=== PATIENT | male | born 1980 | race American Indian/Alaskan Native ===

== ENCOUNTER 2020-07-25 10:17 | Day surgery (SDC) | payer OTHER ==
[~2020-07-25 10:17] MED LIST: LACTATED RINGERS 1,000 ML IV SCH; MIDAZOLAM 2 MG/2 ML INJ IV NR
[2020-07-25] MEDS ORDERED: HYDROcodone/ACETAMINOPHEN 5-325 MG TAB PO PRN ×2 (11:19→13:55)
[2020-07-25] MEDS ORDERED: KETOROLAC 30 MG/1 ML INJ IV PRN (11:19)
[2020-07-25] MEDS ORDERED: ONDANSETRON 4 MG/2 ML INJ IV PRN (11:19)
--- NOTE | 2020-07-25 11:19 | Anesthesia Consultation ---
Anesthesia Consult and Med Hx Date of service: 07/25/20 - Airway Anesthetic Teeth Evaluation: Good ROM Head & Neck: Adequate Mental/Hyoid Distance: Adequate Mallampati Class: Class II Intubation Access Assessment: Probably Good - Pulmonary Exam CTA: Yes - Cardiac Exam Cardiac Exam: RRR - Pre-Operative Health Status ASA Pre-Surgery Classification: ASA2 Proposed Anesthetic Plan: MAC - Pulmonary Hx Smoking: Yes Hx Respiratory Symptoms: No - Cardiovascular System Hx Hypertension: No - Central Nervous System CVA: No - Endocrine Hx Renal Disease: No Hx Liver Disease: No Hx Insulin Dependent Diabetes: No Hx Non-Insulin Dependent Diabetes: No Hx Thyroid Disease: No - Other Systems Hx Obesity: No - Additional Comments Anesthesia Medical History Comments: No hx anesthetic complications.
--- NOTE | 2020-07-25 11:19 | Anesthesia Day of Surgery ---
Anesthesia Day of Surgery - Day of Surgery Patient Examined: Yes Patient H&P Reviewed: Yes Patient is NPO: Yes
[2020-07-25] MEDS ORDERED: ceFAZolin/Water 2 GM/20 ML 2 GM/20 ML SYRINGE IV ONE (11:20)
[2020-07-25] MEDS ORDERED: ceFAZolin/STERILE WATER 2 GM/20 ML SYRINGE IV NR (11:22)
[2020-07-25] MEDS ORDERED: LIDOCAINE MPF (2%) 20 MG/1 ML VIAL 5 ML ONE (11:45)
[2020-07-25] MEDS ORDERED: KETOROLAC 30 MG/1 ML INJ ONE (11:45)
[2020-07-25] MEDS ORDERED: dexAMETHasone 20 MG/5 ML VIAL ONE (11:46)
[2020-07-25] MEDS ORDERED: fentaNYL 100 MCG/2 ML INJ ONE (11:46)
[2020-07-25] MEDS ORDERED: ONDANSETRON 4 MG/2 ML INJ ONE (11:46)
[2020-07-25] MEDS ORDERED: propofoL 200 MG/20 ML VIAL IV ONE ×2 (11:46→12:23)
--- NOTE | 2020-07-25 13:13 | Post Operative Note ---
Date of procedure: 07/25/20 Pre-op diagnosis: elective sterilization Post-op diagnosis: same Findings: vasa Procedure: bilat vas Anesthesia: GETA Surgeon: GENARO DUQUE Estimated blood loss: minimal Pathology: list (vasa) Specimen disposition: to lab Condition: stable Disposition: PACU
--- NOTE | 2020-07-25 13:14 | Discharge Summary ---
Short Stay Discharge Plan Activity: other (no straining ) Weight Bearing Status: Full Weight Bearing Diet: low fat, low cholesterol, low salt Wound: open to air Special Instructions: other (keep dry x 48 hrs ) Durable Medical Equipment Needed Upon Discharge: other (ice packs in rr and x 24 hrs ) Follow up with: PRIMARY CARE, [Primary Care Provider] - 7 Days GENARO DUQUE MD [Staff Physician] - 6 Weeks
--- NOTE | 2020-07-25 13:31 | Operative Report ---
PREOPERATIVE DIAGNOSIS: Elective sterilization. POSTOPERATIVE DIAGNOSIS: Elective sterilization. PROCEDURE: Bilateral partial vasectomy. SURGEON: Dr. Kahn. ANESTHESIA: General. FINDINGS: This is a gentleman who elected to undergo a vasectomy with anesthesia. All risks and complications discussed. DESCRIPTION OF PROCEDURE: The patient was brought to the operating room and placed on the operating table. Following induction of anesthesia, placed in supine position, prepped and draped in usual sterile fashion. Midline incision was made and both vasa were identified and dissected meticulously. No significant bleeding. They were doubly tied and the lumen was cauterized and a small amount of tissue was covered one side. The patient tolerated the procedure well. No significant complications. Closure was with 2-3 sutures of chromic in the midline, brought to recovery room. Specimen sent to pathology in stable condition. Instructions given. JOB# [id number] AGUSTIN/CIARRA
[2020-07-25] MEDS: HYDROmorphone 1 MG/1 ML INJ IV PRN ×2 (13:34→13:44)
[2020-07-25 14:16] VITALS: BP 107/76
--- NOTE | 2020-07-25 14:27 | Post Anesthesia Evaluation ---
- Post Anesthesia Evaluation Patient Participated: Yes Airway Patent: Yes Stable Respiratory Function: Yes Nausea/Vomiting: No Temp > 96.8F: Yes Pain Manageable: Yes Adequeate Hydration: Yes Anesthesia Complications: No
== END 2020-07-25 14:40 | disposition home or self-care (01) ==
LOC: OR 10:17
PROVIDERS: ATTEND Urology
DX: Z30.2 Encounter for sterilization (principal); F17.210 Nicotine dependence, cigarettes, uncomplicated; Z98.890 Other specified postprocedural states
CPT/HCPCS: 55250; 88302; J0690; J1100; J1170; J1885; J2250; J2405; J2704; J3010; J7120